=== PATIENT | female | born 1990 | race Caucasian/White ===

== ENCOUNTER 2016-05-10 11:25 | Emergency (ER) | payer BC ==
[2016-05-10 11:34] VITALS: TEMP 97.4; BMI 18.9
--- NOTE | 2016-05-10 14:40 | PDOC ---
History of Present Illness - General History Source: Patient Exam Limitations: No Limitations - History of Present Illness Initial Comments: 05/10/16 14:43 The patient is a 26 year old female with a significant past medical history of syncope who presents to the ED with syncope, nausea and vomiting. Patient states that she was at work and was walking as she hit her left knee really hard against a metal safe. She states that she started feeling fuzzy, nauseous , diaphoretic and lightheaded. Patient states that she had to sit down and catch her breath as she usually does for her syncopal episodes. She notes that she did not fall or hit her head. She reports abdominal cramping during the episode alleviated with vomiting episode. Patient states that she has no limitation of her daily activities. Patient notes that she had previous cardiac work up by her PMD but notes that has no completed a stress test yet. She denies fever, chills, headache, vision changes, chest pain, SOB, diarrhea, constipation. FH: heart disease Recent travel: Flew out of [place] to the [facility] PCP - Dr. Laura <Shani Holder - Last Filed: 05/10/16 15:06> <Chandu Gordillo - Last Filed: 05/10/16 15:27> - General Chief Complaint: Syncope/Near Syncope Stated Complaint: SYNCOPE, VOMITING Time Seen by Provider: 05/10/16 14:00 Past History <Shani Holder - Last Filed: 05/10/16 15:06> - Past Medical History Other medical history: NONE - Psycho/Social/Smoking Cessation Hx Suicidal Ideation: No Smoking History: Never smoked Hx Alcohol Use: Yes (SOCIAL) Drug/Substance Use Hx: No Substance Use Type: None <Chandu Gordillo - Last Filed: 05/10/16 15:27> - Past Medical History Allergies/Adverse Reactions: Allergies Allergy/AdvReac Type Severity Reaction Status Date / Time No Known Allergies Allergy Verified 05/10/16 11:33 Review of Systems - Review of Systems Constitutional: No: Chills, Fever Respiratory: No: Cough, Shortness of Breath Cardiac (ROS): No: Chest Pain, Edema, Palpitations ABD/GI: Yes: Nausea, Vomiting. No: Diarrhea Neurological: No: Headache All Other Systems: Reviewed and Negative <Chandu Gordillo Last Filed: 05/10/16 15:27> *Physical Exam - Vital Signs Last Vital Signs Temp Pulse Resp BP Pulse Ox 97.4 F L 70 20 116/80 100 05/10/16 11:29 05/10/16 11:29 05/10/16 11:29 05/10/16 11:29 05/10/16 11:29 - Physical Exam Comments: 05/10/16 14:43 GENERAL: The patient is awake, alert, and fully oriented, in no acute distress. HEAD: Normal with no signs of trauma. EYES: Pupils equal, round and reactive to light, extraocular movements intact, sclera anicteric, conjunctiva clear with no pallor. ENT: Ears normal, nares patent, oropharynx clear without exudates. Moist mucous membranes. NECK: Normal range of motion, supple without lymphadenopathy, JVD, or masses. LUNGS: Breath sounds equal, clear to auscultation bilaterally. No wheeze/ crackles. HEART: Regular rate and rhythm, normal S1 and S2 without murmur or rub. ABDOMEN: Soft/nontender/nondistended. BS wnl. No guarding or rebound. No palpable masses. No hepatosplenomegaly. EXTREMITIES: Normal range of motion, no edema. No clubbing or cyanosis. No cords, erythema, or tenderness. NEUROLOGICAL: Cranial nerves II through XII grossly intact. Normal speech, normal gait. PSYCH: Normal mood, normal affect. SKIN: Warm, Dry, normal turgor, no rashes or lesions noted. <Shani Holder - Last Filed: 05/10/16 15:06> - Vital Signs Last Vital Signs Temp Pulse Resp BP Pulse Ox 97.4 F L 70 20 116/80 100 05/10/16 11:29 05/10/16 11:29 05/10/16 11:29 05/10/16 11:29 05/10/16 11:29 <Chandu Gordillo - Last Filed: 05/10/16 15:27> Heart Score/ECG Review #1 ECG reviewed & interpreted by me at: 15:01 General ECG Interpretation: Sinus Rhythm, Normal Rate (64), Normal Intervals ( qtc 437. Read of "short WA" but 104, no clear delta wave. IRBBB without clear evidence of Brugada.), No acute ischemic changes <Chandu Gordillo - Last Filed: 05/10/16 15:27> ED Treatment Course - ADDITIONAL ORDERS Additional order review: Laboratory Results 05/10/16 14:00 Urine HCG, Qual Negative <Shani Holder - Last Filed: 05/10/16 15:06> Medical Decision Making - Medical Decision Making 05/10/16 14:28 A portion of this note was documented by scribe services under my direction. I have reviewed the details of the note, within reason, and agree with the documentation with the following case summary and management plan written by me. 26-year-old female with history of syncope presents with syncope in the setting of striking her knee accidentally. Patient bumped her left knee, in the setting of the pain developed lightheadedness with nausea/vomiting and diaphoresis. Symptoms resolved after she sat down, no actual loss of consciousness or subsequent injury. No chest pain. Has had syncope in the past in the setting of exertion, echocardiogram and EKG has been normal to date with Dr. Laura, awaiting Holter monitor and stress test. At baseline, patient has unlimited exercise tolerance. She takes OCPs but denies any recent prolonged immobilization or smoking or signs or symptoms of DVT. No family history of PE or DVT. Currently feels well, has no primary pulmonary complaints. Vital signs normal. Urine pending. Exam is normal without arrhythmia or murmur Neuro intact Knee exam is normal 26-year-old female with likely vasovagal syncope triggered by pain in the setting of acute knee injury knee. No primary cardiopulmonary complaints, has had normal workup to date. On OCP but clinically low suspicion for PE given the scenario, no risk factors for ACS pending stress test. Feels well, no red flags on exam. EKG Urine zofran for nausea if QTC wnl. Then PO trial reassess 05/10/16 15:20 Feels well, seated in stretcher tolerating PO. Urine preg negative EKG with short WA but no clear WPW/delta wave. IRBBB without clear evidence of Brugada. QTC normal. No ischemia. Discussed with patient, gave her a copy of her EKG, and recommended seeing a rn surgical to complete her workup and consider EP study. Agrees, wants to go home, understands return criteria. <Chandu Gordillo - Last Filed: 05/10/16 15:27> *DC/Admit/Observation/Transfer - Attestations Scribe Attestion: 05/10/16 14:43 Documentation prepared by WILMAN Love, acting as medical record administrator for Chandu Gordillo MD. <Shani Holdre - Last Filed: 05/10/16 15:06> <Chandu Gordillo - Last Filed: 05/10/16 15:27> Diagnosis at time of Disposition: Vasovagal syncope - Discharge Dispostion Disposition: HOME Condition at time of disposition: Improved - Referrals Referrals: Matthias Laura MD [Primary Care Provider] - Narayan Poole MD [Staff Physician] - - Patient Instructions Printed Discharge Instructions: DI for Syncope in Adults (Fainting) Additional Instructions: Activity as tolerated. Stay hydrated. Your presentation today was most likely due to vasovagal syncope from hitting your knee. This is common and benign. As discussed, your EKG has some subtle findings that should be further evaluated by a rn surgical. A "Short WA" can be evaluated as a possible sign of WPW, and an Incomplete RBBB may require further evaluation also. These could be causes of your history of passing out. Continue your medications as previously prescribed by your physician. You should follow up with Dr. Laura as soon as possible regarding today's emergency department visit. You should also see a rn surgical, consider calling Dr. Poole for an appointment. Return to the emergency department for any new or concerning symptoms, particularly chest pain or palpitations, shortness of breath or persistently passing out or lightheadedness, severe knee pain or swelling. - Post Discharge Activity Work/School Note: Back to Work
[2016-05-10] MEDS ORDERED: ONDANSETRON *ODT* 4 MG TABLET SL ONE (15:13)
[2016-05-10] MEDS ORDERED: ONDANSETRON *ODT* 4 MG TABLET ONE (15:20)
[2016-05-10 15:33] VITALS: BP 102/78; PULSE 68
--- NOTE | 2016-05-11 16:17 | EKG ---
Test Reason : Blood Pressure : / mmHG Vent. Rate : 064 BPM Atrial Rate : 064 BPM P-R Int : 104 ms QRS Dur : 092 ms QT Int : 424 ms P-R-T Axes : 025 046 040 degrees QTc Int : 437 ms SINUS RHYTHM WITH SHORT WA OTHERWISE NORMAL ECG WHEN COMPARED WITH ECG OF 06-JUN-1998 00:26, PREVIOUS ECG IS PRESENT Confirmed by DEMETRICE ANDUJAR MD ([id number]) on 05/11/2016 4:17:16 PM Referred By: Confirmed By:DEMETRICE ANDUJAR MD
== END 2016-05-10 15:35 | disposition home or self-care (01) ==
LOC: JER 11:25
DX: R55 Syncope and collapse (principal)
CPT/HCPCS: 84703; 93005; 93010; 99283-25

== ENCOUNTER 2016-10-09 20:43 | Emergency (ER) | payer BC ==
[2016-10-09 21:28] VITALS: BP 110/70; PULSE 76; TEMP 98.2; BMI 18.3
--- NOTE | 2016-10-09 23:08 | PDOC ---
Attending Attestation - Resident Resident Name: Fang Reed - ED Attending Attestation I have performed the following: I have examined & evaluated the patient, The case was reviewed & discussed with the resident, I agree w/resident's findings & plan, Exceptions are as noted - HPI HPI: 10/09/16 23:12 26 yo female p/w pelvic cramping and suprapubic pain.Currently on control 10/09/16 23:14 - Physicial Exam PE: 10/09/16 23:1 wnwd 26 yo female c/o suprapubic discomfort and cramping HEENT wnl Neck no bruits Lungs cta b/l CVR [id number] Abd soft,no rebound,no guarding ext no edema.,no deformity,full range of motion neuro axox3,ambulatory 10/09/16 23:28 - Medical Decision Making 10/09/16 23:29 UA, hcg pending 10/10/16 00:13 UA is positive for a UTI. Patient will be started on antibiotics
[2016-10-09] MEDS ORDERED: IBUPROFEN 400 MG TABLET (FP) PO ONE ×2 (23:11→23:35)
--- NOTE | 2016-10-09 23:11 | PDOC ---
History of Present Illness - General Chief Complaint: Pain Stated Complaint: PAIN WHEN URINATING/BLEEDING Time Seen by Provider: 10/09/16 23:01 - History of Present Illness Initial Comments: 10/09/16 23:09 CC: "I think I have a UTI." Patient is a 26 y/o female with no significant PMH presents to our ED c/o 1 day h/o dysuria, hematuria and increased urgency. Patient notes she has been taking Pyridium for pain relief to no avail prompting her visit to our facility. Patient denies any abdominal pain, fevers, chills, chest pain or shortness of breath. Past surgical: dental Social: (-) nicotine, (-) alcohol - social, (-) marijuana/cocaine/heroin PMD: Dr. Keya MIGUEL Past History - Past Medical History Allergies/Adverse Reactions: Allergies Allergy/AdvReac Type Severity Reaction Status Date / Time No Known Allergies Allergy Verified 10/09/16 21:25 Disorders: Yes (Dysmenorrhea) - Psycho/Social/Smoking Cessation Hx Suicidal Ideation: No Smoking History: Never smoked Have you smoked in the past 12 months: No Information on smoking cessation initiated: No Hx Alcohol Use: No Drug/Substance Use Hx: No Substance Use Type: None Review of Systems - Review of Systems Constitutional: No: Chills, Fever Respiratory: No: Shortness of Breath Cardiac (ROS): No: Chest Pain, Lightheadedness, Palpitations ABD/GI: No: Constipated, Diarrhea, Nausea, Vomiting : Yes: Burning, Dysuria, Flank Pain All Other Systems: Reviewed and Negative *Physical Exam - Vital Signs Last Vital Signs Temp Pulse Resp BP Pulse Ox 98.2 F 76 18 110/70 100 10/09/16 21:26 10/09/16 21:26 10/09/16 21:26 10/09/16 21:26 10/09/16 21:26 - Physical Exam General Appearance: Yes: Nourished, Appropriately Dressed Respiratory/Chest: positive: Lungs Clear, Normal Breath Sounds Cardiovascular: positive: Regular Rhythm, Regular Rate, S1, S2 Gastrointestinal/Abdominal: positive: Soft Musculoskeletal: positive: CVA Tenderness Integumentary: positive: Normal Color, Dry, Warm Neurologic: positive: Fully Oriented, Alert ED Treatment Course - LABORATORY CBC & Chemistry Diagram: 10/09/16 23:45 10/09/16 23:45 Medical Decision Making - Medical Decision Making 10/09/16 23:24 Patient is a 26 y.o. female who presents with acute onset of dysuria, hematuria and increased urgency. Initial DDx is UTI vs. Pyelonephritis PLAN 1. UA/Urine Culture 2. Motrin for pain control Patient signed out to Dr. Odell (Resident) and Dr. Fisher (Attending) *DC/Admit/Observation/Transfer Diagnosis at time of Disposition: Urinary tract infection - Discharge Dispostion Disposition: HOME - Referrals Referrals: Matthias Laura MD [Primary Care Provider] -
[2016-10-09 23:57] LABS: BASOPHIL 0.4 % (0-2.0); EOSINOPHIL 2.1 % (0-4.5); MCH 29.3 pg (25.7-33.7); MCHC 33.8 g/dl (32.0-36.0); MEAN CELL VOLUME 86.5 fl (80-96); MEAN PLT VOLUME 6.9 fl (7.5-11.1); NEUTROPHILS 75.2 % (42.8-82.8); PLATELET COUNT 281 K/MM3 (134-434); URINE APPEARANCE SLCLOUDY; URINE BILIRUBIN NEGATIVE (NEGATIVE); URINE BLOOD 3+ (NEGATIVE); URINE GLUCOSE (UA) NEGATIVE (NEGATIVE); URINE KETONE NEGATIVE (NEGATIVE); URINE NITRITE POSITIVE (NEGATIVE); URINE UROBILINOGEN 4.0 E.U/dl mg/dL (0.2-1.0); WHITE BLOOD COUNT 11.8 K/mm3 (4.0-10.0)
[2016-10-10 00:02] LABS: URINE COLOR DK YELLOW; URINE LEUK ESTERASE 1+ (NEGATIVE); URINE PROTEIN 2+ (NEGATIVE)
[2016-10-10 00:04] LABS: URINE BACTERIA MANY /hpf (NONE SEEN); URINE MUCUS RARE; URINE RBC 355 /hpf (0-3); URINE WBC 168 /hpf (3-5)
[2016-10-10 00:23] LABS: ANION GAP 7 (8-16); CALCIUM 9.1 mg/dL (8.5-10.1); CO2 28 mmol/L (21-32); CREATININE 0.7 mg/dL (0.55-1.02); GLUCOSE,RANDOM 104 mg/dL (74-106)
--- NOTE | 2016-10-10 00:26 | PDOC ---
*Physical Exam - Vital Signs Last Vital Signs Temp Pulse Resp BP Pulse Ox 98.2 F 76 18 110/70 100 10/09/16 21:26 10/09/16 21:26 10/09/16 21:26 10/09/16 21:26 10/09/16 21:26 ED Treatment Course - LABORATORY CBC & Chemistry Diagram: 10/09/16 23:45 10/09/16 23:45 - ADDITIONAL ORDERS Additional order review: Laboratory Results 10/09/16 10/09/16 23:45 23:45 Urine Color Dk yellow Urine Appearance Slcloudy Urine pH 7.0 D Urine Protein 2+ H Urine Glucose (UA) Negative Urine Ketones Negative Urine Blood 3+ H Urine Nitrite Positive Urine Bilirubin Negative Urine Urobilinogen 4.0 e.u/dl H Ur Leukocyte Esterase 1+ H Urine RBC 355 Urine WBC 168 Ur Epithelial Cells Few Urine Bacteria Many Urine Mucus Rare Urine HCG, Qual Negative 10/09/16 23:45 RBC 4.15 MCV 86.5 MCHC 33.8 RDW 13.0 MPV 6.9 L Neutrophils % 75.2 Lymphocytes % 17.7 Monocytes % 4.6 Eosinophils % 2.1 Basophils % 0.4 - Medications Given in the ED: ED Medications Discontinued Medications Generic Name Dose Route Start Last Admin Trade Name Freq PRN Reason Stop Dose Admin Ibuprofen 800 mg 10/09/16 23:11 10/09/16 23:50 Motrin - PO 10/09/16 23:12 800 mg ONCE ONE Administration Medical Decision Making - Medical Decision Making Patient is a 26 y.o. female who presents with acute onset of dysuria, hematuria and increased urgency. Pt signed out to me from Dr. Reed. UA (+) for UTI CBC with diff reveals leukocytosis BMP wnl First dose of Keflex given in ER. Pt can go home with prescription for Keflex. 10/10/16 00:19 *DC/Admit/Observation/Transfer Diagnosis at time of Disposition: Urinary tract infection - Discharge Dispostion Disposition: HOME Admit: No - Referrals Referrals: Matthias Laura MD [Primary Care Provider] - - Patient Instructions Printed Discharge Instructions: Urinary Tract Infection - Post Discharge Activity
[2016-10-10] MEDS ORDERED: CEPHALEXIN MONOHYDRATE 500 MG CAPSULE (UD) PO ONE (00:29)
[2016-10-10] MEDS ORDERED: CEPHALEXIN MONOHYDRATE 250 MG CAPSULE (FP) ONE (00:44)
== END 2016-10-10 01:06 | disposition home or self-care (01) ==
LOC: JERFT 20:43 → JER 20:43
DX: N39.0 Urinary tract infection, site not specified (principal); B96.89 Other specified bacterial agents as the cause of diseases classified elsewhere
CPT/HCPCS: 36415; 80048; 81003; 81015; 84703; 85025; 87086; 87186; 99282-25

== ENCOUNTER 2019-04-08 06:44 | Emergency (ER) | payer BC, OTHER ==
[2019-04-08 07:11] VITALS: BMI 19.4
[2019-04-08] MEDS ORDERED: ACETAMINOPHEN 500 MG TABLET (FP) PO ONE (07:30)
[2019-04-08] MEDS ORDERED: diazePAM 5 MG TABLET PO ONE (07:30)
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
[2019-04-08] MEDS ORDERED: CYCLOBENZAPRINE HCL 10 MG TABLET (FP) PO ONE ×2 (07:31→08:09)
[2019-04-08] MEDS ORDERED: ACETAMINOPHEN 325 MG TABLET (FP) ONE (07:40)
--- NOTE | 2019-04-08 09:53 | PDOC ---
Attending Attestation - Resident Resident Name: Tahmina Weathers - ED Attending Attestation I have performed the following: I have examined & evaluated the patient, The case was reviewed & discussed with the resident, I agree w/resident's findings & plan - HPI HPI: 04/08/19 09:48 Healthy 29-year-old female presents with atraumatic left neck strain upon awakening this morning. Patient was in usual state of normal health, awoke this morning with left neck strain and difficulty rotating to the left, no motor or sensory deficit. No headache/vision change/fever/chills. Took ibuprofen 400 mg prior to arrival around 6 AM, presents for evaluation. No history of same. - Physicial Exam PE: 04/08/19 09:52 Vital signs stable, afebrile. Discomfort to palpation over left trapezius without swelling or hematoma or erythema. No midline spine tenderness, full range of motion with limited leftward rotation secondary to discomfort 5 out of 5 flexion/extension of all 4 extremities - Medical Decision Making 04/08/19 09:53 Healthy 29-year-old female with left neck trapezial strain, no evidence of infectious or traumatic process. Neurovascularly intact, well-appearing and hemodynamically stable. Patient improved after muscle relaxants, pain medicines No indication for emergent imaging Stable for discharge, understands return criteria
[2019-04-08 09:56] VITALS: BP 108/64; PULSE 63; TEMP 98
== END 2019-04-08 10:14 | disposition home or self-care (01) ==
LOC: JER 06:44
DX: M62.838 Other muscle spasm (principal)
CPT/HCPCS: 99282-25